=== PATIENT | female | born 1945 | race Caucasian/White ===

== ENCOUNTER 2017-11-20 15:19 | Emergency (ER) | payer MEDICARE, OTHER ==
--- NOTE | 2017-11-20 16:55 | ED Physician Documentation ---
PD HPI SKIN - Stated complaint Stated Complaint: LT EYE INFECTION/PX/NAUSEA - Chief complaint Chief Complaint: Wound - History obtained from History obtained from: Patient - History of Present Illness Timing - onset: How many days ago (5-6 days of initially pain, then itching, then rash of left upper face/forehead, which has progressed to around eyelids. Seen by Derm a few days ago and Dx with shingles and Rx with Valacyclovir and Tylenol#3. Patient says she took first doses of both and then has been vomiting with attempted oral intake of foods or meds the past 2 days. Feeling weak and dehydrated.) Timing - duration: Days (5-6) Timing - details: Still present Location: Face Quality / character: Itchy, Painful, Vesicular Associated symptoms: N/V/D (after starting medications). No: Fever Contributing factors: No: Exposed to medication, Exposed to food, Recent illness Similar symptoms before: Has not had sx before Recently seen: Clinic Review of Systems Constitutional: reports: Myalgias, Fatigue. 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 : Other HEENT: Other Psych: None Musculoskeletal: None Derm: None - Past Surgical History Past Surgical History: Yes - Present Medications Home Medications: Ambulatory Orders Medication Instructions Recorded Confirmed Dexamethasone [Decadron] 4 mg PO DAILY #5 tablet 11/20/17 Ondansetron Odt [Zofran] 4 mg TL Q6H PRN #15 tablet 11/20/17 Tramadol HCl 50 mg PO Q6H PRN #15 tablet 11/20/17 - Allergies Allergies/Adverse Reactions: Allergies Allergy/AdvReac Type Severity Reaction Status Date / Time Penicillins Allergy Unknown Verified 11/20/17 15:38 - Social History Does the pt smoke?: No Smoking Status: Never smoker Does the pt drink ETOH?: Yes ETOH Use: Wine - Immunizations Immunizations are current?: Yes PD ED PE NORMAL - Vitals Vital signs reviewed: Yes - General General: Alert and oriented X 3, No acute distress, Well developed/nourished - HEENT HEENT: Pharynx benign. No: Moist mucous membranes - Neck Neck: Supple, no meningeal sign, No adenopathy - Cardiac Cardiac: RRR, No murmur - Respiratory Respiratory: Clear bilaterally - Abdomen Abdomen: Soft, Non tender - Back Back: No CVA TTP - Derm Derm: Normal color, Warm and dry, Other (left facial/forehead rash c/w shingles, d emarcates at midline and involves forehead, frontal area, and down to periorbital area and eyelids. Nose without rash. ) - Neuro Neuro: Alert and oriented X 3, No motor deficit, Normal speech PD ED PE EXPANDED - Eyes Eyes: PERRL, EOMI, Eyelid swelling (mild with shingles rash of eyelids). No: Corneal ulcer, Fluorescein uptake Results - Vitals Vitals: Vital Signs - 24 hr 11/20/17 11/20/17 11/20/17 15:27 18:13 19:23 Temperature 37 C 37 C 37 C Heart Rate 94 89 100 Respiratory 16 16 18 Rate Blood Pressure 143/92 H 161/76 H 148/80 H O2 Saturation 94 99 97 Oxygen O2 Source Room air PD MEDICAL DECISION MAKING - ED course Complexity details: reviewed results (no corneal lesions on eye staining. Appears just lids. Tip of nose without lesions. She is dehydrated from N/V, likely related to PO meds. Given IV fluids and meds and feels a lot better. Can change pain meds, as Tylenol#3 common to cause N/V. It could be the antiviral as well, but will be good to try to stay on it. ), considered differential, d/w patient - Sepsis Event Vital Signs: Vital Signs - 24 hr 11/20/17 11/20/17 11/20/17 15:27 18:13 19:23 Temperature 37 C 37 C 37 C Heart Rate 94 89 100 Respiratory 16 16 18 Rate Blood Pressure 143/92 H 161/76 H 148/80 H O2 Saturation 94 99 97 Oxygen O2 Source Room air Departure - Departure Disposition: 01 Home, Self Care Clinical Impression: Medication side effect Shingles rash Qualifiers: Herpes zoster complications: without complications Qualified Code(s): B02.9 - Zoster without complications Nausea and vomiting Qualifiers: Vomiting type: unspecified Vomiting Intractability: non-intractable Qualified Code(s): R11.2 - Nausea with vomiting, unspecified Condition: Stable Record reviewed to determine appropriate education?: Yes Instructions: ED Nausea Vomiting, ED Shingles Prescriptions: Dexamethasone [Decadron] 4 mg PO DAILY #5 tablet Ondansetron Odt [Zofran] 4 mg TL Q6H PRN #15 tablet PRN Reason: Nausea / Vomiting Tramadol HCl 50 mg PO Q6H PRN #15 tablet PRN Reason: Pain Comments: Use Ondansatron for nausea and vomiting. Stop the Tylenol with Codeine as this is most likely causing the nausea and vomiting. It may be a combination of medications as well, but still I would hold that one and use plain Tylenol instead. If you do need little stronger, then add tramadol and see if it is more tolerated. The Valacyclovir may be causing the nausea and vomiting as well, as it is a less common side effect from that (compared to the codeine). However would be good to be still taking that to decrease the shingles outbreak. Add Decadron steroid for inflammation and this can help with the nausea as well. Recheck if this still not improving over the next day or two regarding tolerance of food, fluids and medicines. I do not see any eye involvement of the shingles at this time. It seems to be just periorbital on the eyelids. Discharge Date/Time: 11/20/17 19:27
[2017-11-20] MEDS ORDERED: ONDANSETRON 4 MG/2 ML VIAL IVP STA (17:26)
[2017-11-20] MEDS ORDERED: ACYCLOVIR INJ 500 MG in SODIUM CHLORIDE 0.9% 250 ML IV STA (17:26)
[2017-11-20] MEDS ORDERED: SODIUM CHLORIDE 0.9% 1,000 ML IV ONE (17:26)
[2017-11-20] MEDS ORDERED: KETOROLAC 60 MG/2 ML VIAL IVP STA (17:26)
[2017-11-20] MEDS ORDERED: DEXAMETHASONE 10 MG/ML VIAL IVP STA (17:27)
[2017-11-20] MEDS ORDERED: ONDANSETRON ODT 4 MG Prepack 2 TL PRN (18:51)
[2017-11-20 19:26] VITALS: BP 148/80
== END 2017-11-20 19:27 | disposition home or self-care (01) ==
LOC: ED 15:19
DX: B02.9 Zoster without complications (principal); R11.2 Nausea with vomiting, unspecified; T50.905A Adverse effect of unspecified drugs, medicaments and biological substances, initial encounter; E86.0 Dehydration
CPT/HCPCS: 96365; 96375; 99283; 99284; J0133

== ENCOUNTER 2019-02-05 18:10 | Emergency (ER) | payer MEDICARE, OTHER ==
[2019-02-05 18:22] VITALS: BP 139/86
[2019-02-05] MEDS ORDERED: ONDANSETRON ODT 4 MG Prepack 2 TL STA (18:38)
[2019-02-05] MEDS ORDERED: HYDROcod/ACET 5/325 Prepack 4 PO STA (18:38)
[2019-02-05] MEDS ORDERED: IBUPROFEN 800 MG TABLET PO STA (18:38)
--- NOTE | 2019-02-05 18:38 | ED Physician Documentation ---
PD HPI ABD PAIN - Stated complaint Stated Complaint: POSS UTI - Chief complaint Chief Complaint: Abd Pain - History obtained from History obtained from: Patient - History of Present Illness Timing - onset: Today (73-year-old woman with occasional pyelonephritis, usually on the right. 15 years ago she had a ureteral surgery to decrease these and it certainly did decrease her frequency of pyelonephritis, but still gets it about once a year. She is had right flank pain that is nonradiating with cloudy urine today. No bladder symptoms. She has had chills.) Review of Systems Ten Systems: 10 systems reviewed and negative Constitutional: reports: Chills. denies: Fever, Fatigue GI: reports: Nausea. denies: Abdominal Pain, Vomiting : denies: Dysuria, Frequency, Hesitancy PD PAST MEDICAL HISTORY - Past Medical History Cardiovascular: None Respiratory: Asthma Endocrine/Autoimmune: None GI: None [employer]: None : Other HEENT: Other Psych: None Musculoskeletal: None Derm: None - Past Surgical History Past Surgical History: Yes - Present Medications Home Medications: Ambulatory Orders Medication Instructions Recorded Confirmed Ciprofloxacin HCl [Cipro] 500 mg PO BID #20 tablet 02/05/19 Hydrocodone/Acetaminophen 1 - 2 each PO Q6H PRN #10 tablet 02/05/19 [Hydrocodon-Acetaminophen 5-325] Promethazine [Phenergan] 25 mg PO Q6H PRN #10 tab 02/05/19 Simvastatin 10 mg PO 02/05/19 Venlafaxine [Effexor] 150 mg PO DAILY 02/05/19 02/05/19 - Allergies Allergies/Adverse Reactions: Allergies Allergy/AdvReac Type Severity Reaction Status Date / Time Penicillins Allergy Unknown Verified 02/05/19 18:21 - Social History Does the pt smoke?: No Smoking Status: Never smoker Does the pt drink ETOH?: Yes - Immunizations Immunizations are current?: Yes PD ED PE NORMAL - Vitals Vital signs reviewed: Yes - General General: Alert and oriented X 3, No acute distress - Abdomen Abdomen: Normal bowel sounds, Soft, Non tender - Back Back: No CVA TTP, No spinal TTP - Neuro Neuro: Alert and oriented X 3, Normal speech Results - Vitals Vitals: Vital Signs - 24 hr 02/05/19 18:19 Temperature 37.5 C Heart Rate 109 H Respiratory 18 Rate Blood Pressure 139/86 H O2 Saturation 96 Oxygen O2 Source Room air - Labs Labs: Laboratory Tests 02/05/19 18:27 Urine Color YELLOW Urine Clarity CLOUDY Urine pH 6.5 Ur Specific [place] 1.020 Urine Protein 100 H Urine Glucose (UA) NEGATIVE Urine Ketones NEGATIVE Urine Occult Blood LARGE H Urine Nitrite NEGATIVE Urine Bilirubin NEGATIVE Urine Urobilinogen 0.2 (NORMAL) Ur Leukocyte Esterase LARGE H Ur Microscopic Review INDICATED Urine Culture Comments Not Reportable Departure - Departure Disposition: 01 Home, Self Care Clinical Impression: Pyelonephritis Condition: Good Record reviewed to determine appropriate education?: Yes Instructions: Pyelonephritis Dc Prescriptions: Ciprofloxacin HCl [Cipro] 500 mg PO BID #20 tablet Hydrocodone/Acetaminophen [Hydrocodon-Acetaminophen 5-325] 1 - 2 each PO Q6H PRN #10 tablet PRN Reason: pain Promethazine [Phenergan] 25 mg PO Q6H PRN #10 tab PRN Reason: Nausea / Vomiting Comments: We will culture your urine, the results should be done in 48-72 hours. If an antibiotic change is necessary we will call you. Return if worse in the meantime, especially if you develop increasing flank pain, fevers, or cannot keep down the medication. Your blood pressure was elevated today on check into the emergency department. This does not mean that you have hypertension, it is a common phenomenon to come to the emergency department and have elevated blood pressure. I recommend that you see your primary care physician within the week to have it rechecked when you are feeling better.
[2019-02-05 18:39] LABS: BILIRUBIN,URINE NEGATIVE (NEGATIVE); GLUCOSE, URINE (UA) NEGATIVE (NEGATIVE); KETONES,URINE (UA) NEGATIVE (NEGATIVE); LEUKOCYTE ESTERASE, URINE LARGE (NEGATIVE); NITRITE,URINE NEGATIVE (NEGATIVE); OCCULT BLOOD,URINE LARGE (NEGATIVE); PH,URINE 6.5 PH (5.0-7.5); PROTEIN,URINE 100 mg/dL (NEGATIVE); UROBILINOGEN,URINE 0.2 (NORMAL) E.U./dL (NORMAL)
[2019-02-05 18:40] LABS: CLARITY,URINE CLOUDY (CLEAR)
[2019-02-05] MEDS ORDERED: CIPROFLOXACIN 250 MG TABLET PO STA (18:43)
[2019-02-05 18:49] LABS: BACTERIA,URINE Moderate /HPF (None Seen); SQUAMOUS EPITHELIAL CELL,UR NONE SEEN (<= Few); WBC CLUMPS,URINE PRESENT
== END 2019-02-05 18:48 | disposition home or self-care (01) ==
LOC: ED 18:10
DX: N12 Tubulo-interstitial nephritis, not specified as acute or chronic (principal); Z88.0 Allergy status to penicillin; R03.0 Elevated blood-pressure reading, without diagnosis of hypertension
CPT/HCPCS: 81001; 87086; 87181; 99283; A9270; 81003

== ENCOUNTER 2020-06-08 15:00 | Outpatient (CLI) | payer MEDICARE, OTHER ==
[2020-06-08 18:55] LABS: BILIRUBIN,URINE NEGATIVE (NEGATIVE); GLUCOSE, URINE (UA) NEGATIVE (NEGATIVE); KETONES,URINE (UA) NEGATIVE (NEGATIVE); LEUKOCYTE ESTERASE, URINE MODERATE (NEGATIVE); NITRITE,URINE POSITIVE (NEGATIVE); OCCULT BLOOD,URINE NEGATIVE (NEGATIVE); PH,URINE 6.5 PH (5.0-7.5); PROTEIN,URINE NEGATIVE (NEGATIVE); UROBILINOGEN,URINE 0.2 (NORMAL) E.U./dL (NORMAL)
[2020-06-08 19:08] LABS: BACTERIA,URINE Many /HPF (None Seen); CLARITY,URINE CLOUDY (CLEAR); RBC,URINE 0-5 /HPF (0-5); SQUAMOUS EPITHELIAL CELL,UR NONE SEEN (<= Few)
== END 2020-06-08 23:59 | disposition home or self-care (01) ==
LOC: LAB.R 15:00
PROVIDERS: ATTEND Emergency Medicine
DX: N39.0 Urinary tract infection, site not specified (principal)
CPT/HCPCS: 81001; 87086; 87181

== ENCOUNTER 2020-07-05 08:00 | Outpatient (CLI) | payer MEDICARE, OTHER | END 2020-07-05 23:59 | disposition home or self-care (01) | LOC: LAB.S 08:00 | PROVIDERS: ATTEND Physician Assistant Medical | DX: R30.0 Dysuria (principal); N39.0 Urinary tract infection, site not specified | CPT/HCPCS: 87077; 87086; 87181 ==

== ENCOUNTER 2021-02-06 08:00 | Outpatient (CLI) | payer MEDICARE, OTHER ==
[2021-02-06 19:54] LABS: BILIRUBIN,URINE NEGATIVE (NEGATIVE); GLUCOSE, URINE (UA) NEGATIVE (NEGATIVE); KETONES,URINE (UA) NEGATIVE (NEGATIVE); LEUKOCYTE ESTERASE, URINE NEGATIVE (NEGATIVE); NITRITE,URINE NEGATIVE (NEGATIVE); OCCULT BLOOD,URINE NEGATIVE (NEGATIVE); PH,URINE 7.5 PH (5.0-7.5); PROTEIN,URINE NEGATIVE (NEGATIVE); UROBILINOGEN,URINE 0.2 (NORMAL) E.U./dL (NORMAL)
[2021-02-06 20:03] LABS: CLARITY,URINE CLEAR (CLEAR)
[2021-02-06 20:20] LABS: AMORPHOUS SEDIMENT,UR Rare /LPF; BACTERIA,URINE None Seen /HPF (None Seen); RBC,URINE 0-5 /HPF (0-5); SQUAMOUS EPITHELIAL CELL,UR RARE Squamous (<= Few); WBC,URINE 0-3 /HPF (0-5)
== END 2021-02-06 23:59 | disposition home or self-care (01) ==
LOC: LAB.S 08:00
PROVIDERS: ATTEND Emergency Medicine
DX: R30.0 Dysuria (principal)
CPT/HCPCS: 81001; 87086

== ENCOUNTER 2022-08-08 07:00 | Outpatient (CLI) | payer MEDICARE, OTHER | END 2022-08-08 23:59 | disposition home or self-care (01) | LOC: LAB.S 07:00 | PROVIDERS: ATTEND Physician Assistant | DX: R30.0 Dysuria (principal) | CPT/HCPCS: 87077; 87086; 87181 ==

== ENCOUNTER 2022-08-22 08:00 | Outpatient (CLI) | payer MEDICARE ==
[2022-08-22 18:14] LABS: BILIRUBIN,URINE NEGATIVE (NEGATIVE); GLUCOSE, URINE (UA) NEGATIVE (NEGATIVE); KETONES,URINE (UA) NEGATIVE (NEGATIVE); LEUKOCYTE ESTERASE, URINE SMALL (NEGATIVE); NITRITE,URINE POSITIVE (NEGATIVE); OCCULT BLOOD,URINE NEGATIVE (NEGATIVE); PROTEIN,URINE NEGATIVE (NEGATIVE); UROBILINOGEN,URINE 0.2 (NORMAL) E.U./dL (NORMAL)
[2022-08-22 18:18] LABS: CLARITY,URINE HAZY (CLEAR)
[2022-08-22 18:30] LABS: BACTERIA,URINE Many /HPF (None Seen); RBC,URINE 0-5 /HPF (0-5); SQUAMOUS EPITHELIAL CELL,UR FEW Squamous (<= Few); WBC,URINE >25 /HPF (0-5)
== END 2022-08-22 23:59 | disposition home or self-care (01) ==
LOC: LAB.N 08:00
PROVIDERS: ATTEND Emergency Medicine
DX: R30.0 Dysuria (principal)
CPT/HCPCS: 81001; 87077; 87086; 87181

== ENCOUNTER 2022-09-07 10:25 | Outpatient (CLI) | payer MEDICARE ==
[2022-09-07 14:52] LABS: BILIRUBIN,URINE NEGATIVE (NEGATIVE); GLUCOSE, URINE (UA) NEGATIVE (NEGATIVE); KETONES,URINE (UA) NEGATIVE (NEGATIVE); LEUKOCYTE ESTERASE, URINE SMALL (NEGATIVE); NITRITE,URINE POSITIVE (NEGATIVE); OCCULT BLOOD,URINE NEGATIVE (NEGATIVE); PH,URINE 6.5 PH (5.0-7.5); PROTEIN,URINE NEGATIVE (NEGATIVE); UROBILINOGEN,URINE 0.2 (NORMAL) E.U./dL (NORMAL)
[2022-09-07 15:13] LABS: BACTERIA,URINE Many /HPF (None Seen); CLARITY,URINE CLEAR (CLEAR); SQUAMOUS EPITHELIAL CELL,UR FEW Squamous (<= Few); WBC CLUMPS,URINE PRESENT; WBC,URINE >25 /HPF (0-5)
== END 2022-09-07 10:26 | disposition home or self-care (01) ==
LOC: LAB.S 10:25
PROVIDERS: ATTEND Emergency Medicine
DX: R30.0 Dysuria (principal)
CPT/HCPCS: 81001; 87077; 87086; 87181